=== PATIENT | female | born 1940 | race African-American/Black ===

== ENCOUNTER 2016-09-30 11:29 | Outpatient (CLI) | payer OTHER ==
[2016-09-30 11:48] LABS: BASOPHILS % 0.9 (0.0-1.5); EOSINOPHILS % 5.1 % (0.0-6.8); LYMPHOCYTES # 1.5 # k/uL (0.6-4.0); MEAN CORPUSCULAR HEMOGLOBIN 29.3 pg (28.0-34.0); MONOCYTES # 0.2 # k/uL (0.0-0.9); MONOCYTES % 4.3 % (0.0-11.0); NEUTROPHILS # 2.6 # k/uL (1.4-7.7)
[2016-09-30 12:14] LABS: eGFR (African) > 60; eGFR (Non-African) > 60
== END 2016-09-30 11:30 ==
LOC: LAB 11:29
PROVIDERS: ATTEND Family Medicine
DX: I10 Essential (primary) hypertension (principal); E78.00 Pure hypercholesterolemia, unspecified; E11.9 Type 2 diabetes mellitus without complications
CPT/HCPCS: 36415; 80053; 80061; 83036; 85025

== ENCOUNTER 2016-11-23 14:15 | Outpatient (CLI) | payer OTHER | END 2016-11-23 14:16 | LOC: RT 14:15 | PROVIDERS: ATTEND Physician Assistant | DX: R07.9 Chest pain, unspecified (principal) ==

== ENCOUNTER 2017-08-15 14:08 | Outpatient (CLI) | payer OTHER ==
--- NOTE | 2017-08-15 15:07 | Diagnostic Imaging Report ---
LANDRY DA SILVA [facility] [id number] [facility] [address] [id number] Report Submission Date: Aug 15, 2017 2:57:21 PM CRATE ICER Patient Study Name: ANGELICA MCCAIN Date: Aug 15, 2017 2:26:00 PM CRATE ICER Modality Type: CR Gender: F Description: SPINE : 44 Institution: [facility] Physician: LANDRY DA SILVA Examination: Plain film lumbar spine History: Back discomfort. Findings: 3 views of the lumbar spine demonstrate osteopenia. No anterior compression. Osteophyte formation. Curvature to the right. Atherosclerotic disease involving the abdominal aorta and iliac vessels. Impression: Degenerative changes. No compression deformity. If patient is experiencing neurologic symptoms, consider obtaining MRI. Electronically signed on Aug 15, 2017 2:57:21 PM CRATE ICER by: Efren HARLEY
--- NOTE | 2017-08-15 15:08 | Diagnostic Imaging Report ---
LANDRY DA SILVA [facility] [address] [facility] [address] [address] Report Submission Date: Aug 15, 2017 2:54:32 PM [facility] Patient Study Name: ANGELICA MCCAIN Date: Aug 15, 2017 2:26:56 PM [facility] Modality Type: CR Gender: F Description: PELVIS : 44 Institution: [facility] Physician: LANDRY DA SILVA Examination: Plain film pelvis History: Joint discomfort. Comparison exams: None provided Findings: 3 view of the pelvis and sacroiliac joints demonstrates osteopenia. Articular degenerative changes. And sacroiliac joints demonstrate marginal sclerosis. No fracture fusion. No fracture. No dislocation. Superior and inferior pubic rami and iliac wings are without abnormality. Impression: Sacroiliac joint degenerative changes. No fracture or fusion. Electronically signed on Aug 15, 2017 2:54:32 PM [facility] by: Efren HARLEY
== END 2017-08-15 14:10 ==
LOC: RAD 14:08
PROVIDERS: ATTEND Physician Assistant
DX: M53.3 Sacrococcygeal disorders, not elsewhere classified (principal); M54.41 Lumbago with sciatica, right side
CPT/HCPCS: 72100; 72202

== ENCOUNTER 2017-10-31 11:38 | Outpatient (CLI) | payer OTHER ==
[2017-10-31 11:55] LABS: EOSINOPHILS % 8.4 % (0.0-6.8); MEAN CORPUSCULAR VOLUME 90.9 fl (80.0-100.0); MONOCYTES % 4.5 % (0.0-11.0); NEUTROPHILS # 2.7 # k/uL (1.4-7.7)
[2017-10-31 12:41] LABS: eGFR (African) > 60; eGFR (Non-African) > 60
== END 2017-10-31 11:49 ==
LOC: LAB 11:38
PROVIDERS: ATTEND Family Medicine
DX: E78.00 Pure hypercholesterolemia, unspecified (principal); I10 Essential (primary) hypertension; E11.9 Type 2 diabetes mellitus without complications
CPT/HCPCS: 36415; 80053; 80061; 83036; 85025

== ENCOUNTER 2018-04-16 07:43 | Day surgery (SDC) | payer OTHER ==
[2018-04-16] MEDS ORDERED: SALINE FLUSH 10 ML DISP.SYRIN IVF ONE (09:00)
[2018-04-16] MEDS ORDERED: LIDOCAINE HCL/PF 2% 100 MG/5 ML VIAL IJ ONE (09:00)
[2018-04-16] MEDS ORDERED: LACTATED RINGERS 1,000 ML IV.SOLN IV ONE (09:00)
[2018-04-16] MEDS ORDERED: PROPOFOL 200 MG/20 ML VIAL IV ONE (09:00)
--- NOTE | 2018-04-17 11:26 | GI Report ---
REFERRING PHYSICIAN: Dr. Abdoulaye Wood BUMPER STRAIGHTENER: Carlitos Ronquillo MD PROCEDURE MEDICATION: Propofol as per anesthesia. INDICATIONS: This is a 78-year-old woman who has had polyps in the past. It has been 6 years since her last colonoscopy. She denies attacks of diverticulitis. She does try to get more fiber in her diet. No bleeding. She denies a family history of colorectal cancer. She stopped smoking 11 years ago after being a 50-year smoker. She has been stable cardiopulmonary mcgee. She does have central obesity. PROCEDURE PERFORMED: Colonoscopy. PROCEDURE: An Olympus video colonoscope was advanced to the rectum. She has moderate to severe diverticular disease of the sigmoid and descending colon. A slightly atonic redundant colon and it took some maneuvering to reach the cecum. The appendiceal orifice and ileocecal valve were normal. 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 On slow withdrawal, the remaining part of the ascending colon and transverse colon with no obvious intraluminal lesions noted. The descending colon with some redundancy and diverticular disease particularly in the distal descending and throughout the sigmoid colon. Retroflexion of the rectum shows hemorrhoids. Patient tolerated the procedure well. FINDINGS: 1. Diverticular disease of the sigmoid and descending colon. 2. No polyps noted this time. RECOMMENDATIONS: 1. A high-fiber diet. 2. Consider re-looking at her colon within 10 years, sooner if clinically indicated. 3. The last polyps were hyperplastic. cc: Dr. Abdoulaye HARLEY
== END 2018-04-16 07:44 ==
LOC: OPSURG 07:43
PROVIDERS: ATTEND Internal Medicine Gastroenterology
DX: Z86.010 Personal history of colon polyps (principal); K57.30 Diverticulosis of large intestine without perforation or abscess without bleeding
CPT/HCPCS: 45378; J2001; J2704; J7120; S1016

== ENCOUNTER 2018-11-05 11:03 | Outpatient (CLI) | payer OTHER ==
[2018-11-05 11:53] LABS: BASOPHILS % 0.5 (0.0-1.5); MEAN CORPUSCULAR HEMOGLOBIN 28.5 pg (28.0-34.0); MONOCYTES % 5.3 % (0.0-11.0); NEUTROPHILS # 2.6 # k/uL (1.4-7.7)
[2018-11-05 12:03] LABS: eGFR (Non-African) > 60
--- NOTE | 2018-11-05 14:07 | Diagnostic Imaging Report ---
WANDA CASTELLON [facility] [address] [id number] Report Submission Date: Nov 05, 2018 1:11:27 PM CDT Patient Study Name: KALYN DOMINGUEZ Date: Nov 05, 2018 12:00:00 AM CDT Modality Type: DEXA\OT Gender: F Description: DEXA : 44 Institution: [facility] Physician: WANDA CASTELLON Examination: Bone density History: Assess bone mineralization Comparison exams: None available Technique: DEXA protocol Findings: Average bone mineral density from L1 through L4: 1.615 grams cm2. T score: 3.6 Average bone mineral density of the left femoral neck: 1.117 grams cm2. T score: 1.0 Average bone mineral density of the right femoral neck: 0.934 grams cm2. T score: -0.7 Impression: Normal lumbar spine and hip mineralization for age Electronically signed on Nov 05, 2018 1:11:27 PM CDT by: Efren HARLEY
== END 2018-11-05 11:05 ==
LOC: LAB 11:03
PROVIDERS: ATTEND Family Medicine
DX: Z13.820 Encounter for screening for osteoporosis (principal); I10 Essential (primary) hypertension; E78.00 Pure hypercholesterolemia, unspecified; E11.9 Type 2 diabetes mellitus without complications
CPT/HCPCS: 36415; 77080; 80053; 80061; 83036; 85025

== ENCOUNTER 2019-07-09 09:56 | Outpatient (CLI) | payer OTHER ==
[2019-07-09] MEDS ORDERED: 0.9 % SODIUM CHLORIDE 1,000 ML IV ONE (10:16)
[2019-07-09] MEDS ORDERED: HEPARIN SODIUM 500 UNIT/5 ML DISP.SYRIN IV ONE (12:27)
== END 2019-07-09 12:55 | disposition home or self-care (01) ==
LOC: OUT 09:56 → INF 12:55
PROVIDERS: ATTEND Internal Medicine Medical Oncology
DX: E86.0 Dehydration (principal); C48.2 Malignant neoplasm of peritoneum, unspecified
CPT/HCPCS: J1642; J7030

== ENCOUNTER 2019-07-12 09:54 | Outpatient (CLI) | payer OTHER ==
[2019-07-12] MEDS ORDERED: 0.9 % SODIUM CHLORIDE 1,000 ML IV ONE (10:07)
[2019-07-12] MEDS ORDERED: HEPARIN SODIUM 500 UNIT/5 ML DISP.SYRIN IV ONE (12:25)
== END 2019-07-12 12:45 | disposition home or self-care (01) ==
LOC: INF 09:54
PROVIDERS: ATTEND Internal Medicine Medical Oncology
DX: E86.0 Dehydration (principal)
CPT/HCPCS: J1642; J7030

== ENCOUNTER 2019-07-15 10:07 | Outpatient (CLI) | payer OTHER ==
[2019-07-15] MEDS ORDERED: HEPARIN SODIUM 500 UNIT/5 ML DISP.SYRIN IV ONE (10:11)
[2019-07-15] MEDS ORDERED: 0.9 % SODIUM CHLORIDE 1,000 ML IV ONE (10:11)
== END 2019-07-15 12:30 | disposition home or self-care (01) ==
LOC: INF 10:07
PROVIDERS: ATTEND Internal Medicine Medical Oncology
DX: E86.0 Dehydration (principal)
CPT/HCPCS: J1642; J7030

== ENCOUNTER 2019-07-17 09:29 | Outpatient (CLI) | payer OTHER ==
[2019-07-17] MEDS ORDERED: 0.9 % SODIUM CHLORIDE 1,000 ML IV ONE (09:32)
== END 2019-07-17 12:01 | disposition home or self-care (01) ==
LOC: INF 09:29
PROVIDERS: ATTEND Internal Medicine Medical Oncology
DX: E86.0 Dehydration (principal)
CPT/HCPCS: J1642; J7030

== ENCOUNTER 2019-07-31 10:07 | Outpatient (CLI) | payer OTHER ==
[2019-07-31] MEDS ORDERED: 0.9 % SODIUM CHLORIDE 1,000 ML IV ONE (10:12)
[2019-07-31] MEDS ORDERED: HEPARIN SODIUM 500 UNIT/5 ML DISP.SYRIN IV ONE (10:13)
== END 2019-07-31 13:00 | disposition home or self-care (01) ==
LOC: INF 10:07
PROVIDERS: ATTEND Internal Medicine Medical Oncology
DX: E86.0 Dehydration (principal); C48.2 Malignant neoplasm of peritoneum, unspecified
CPT/HCPCS: J1642; J7030